=== PATIENT | male | born 1975 | race Caucasian/White ===

== ENCOUNTER → 2025-01-18 14:03 | Outpatient (CLI) | payer OTHER, SELFPAY ==
[2025-01-18 14:42] LABS: Hemoglobin A1C% w Est Avg Glu 5.3 % (4.0-6.0)
[2025-01-18 14:46] LABS: Add Manual Diff / Slide Review NO; Basophils Absolute Auto 100 /uL (0-100); Basophils Percent Auto 0.8 % (0-2); Eosinophils Absolute Auto 300 /uL (0-450); Eosinophils Percent Auto 3.2 % (2-4); Hematocrit 44.4 % (41-53); Hemoglobin 14.7 g/dL (13.5-17.5); Lymphocytes Absolute Auto 2700 /uL (1100-4500); Lymphocytes Percent Auto 32.4 % (25-40); Mean Corpuscular HGB Conc 33.2 % (30-36); Mean Corpuscular Hemoglobin 31.9 PG (26-34); Monocytes Absolute Auto 500 /uL (0-900); Monocytes Percent Auto 6.2 % (3-14); Neutrophils Absolute Auto 4800 /uL (1500-7000); Neutrophils Percent Auto 57.4 % (50-75); Platelet Count 312 X10^3/uL (150-400); Red Blood Cell Count 4.62 X10^6/uL (4.5-5.9); White Blood Cell Count 8.4 X10^3/uL (4.5-11.0)
[2025-01-18 14:50] LABS: Alanine Aminotransferase 67 IU/L (<50); Albumin 4.3 g/dL (3.5-5.0); Albumin Globulin Ratio 1.1 (1.0-2.8); Alkaline Phosphatase 73 U/L (38-126); Aspartate Aminotransferase 35 IU/L (17-59); BUN Creatinine Ratio 11.9 (6-22); Bilirubin Total 0.6 mg/dL (0.2-1.3); Blood Urea Nitrogen 12 mg/dL (9-20); Calcium 9.3 mg/dL (8.4-10.2); Carbon Dioxide 27 mmol/L (22-32); Chloride 103 mmol/L (98-107); Estimated Glomerular Filt Rate > 60 mL/min (>60); Globulin 3.8 g/dL (1.7-4.1); Glucose 98 mg/dL (70-100); HDL Cholesterol 46 mg/dL (40-60); HEMOLYSIS < 15 (0-50); Potassium 4.8 mmol/L (3.4-5.1); Sodium 138 mmol/L (137-145); Total Protein 8.1 g/dL (6.3-8.2); Triglycerides 180 mg/dL (35-150)
[2025-01-18 15:01] LABS: Cholesterol 338 mg/dL (140-199); LDL Cholesterol Calculated 256 mg/dL (<100)
[2025-01-18 15:18] LABS: TSH w/ Reflex to FT4 1.89 uIU/mL (0.47-4.68)
== END ==
PROVIDERS: PCP Nurse Practitioner Family; Referring Provider Nurse Practitioner Family; Visit Provider Nurse Practitioner Family
DX: E66.9 Obesity, unspecified (principal)
CPT/HCPCS: 36415; 80053; 80061; 83036; 84443; 85025

== ENCOUNTER 2025-04-05 11:57 | Day surgery (SDC) | payer OTHER, SELFPAY ==
[2025-04-05 12:48] VITALS: BP 114/77; PULSE 76; RESP 18; TEMP 36.4; O2SAT 95
[2025-04-05] MEDS: LACTATED RINGERS 1,000 ML 42 ML IV (13:12)
--- NOTE | 2025-04-05 13:49 | PM.HP.IH.1 ---
History of Present Illness History of Present Illness Date Patient Seen: 04/05/25 Chief complaint: Screening Colonoscopy Narrative: First screening colonoscopy [facility] History (Updated 02/12/25 @ 08:35 by [facility] Hypertension Hyperlipidemia Obesity, Class II, BMI 35-39.9 Social History Smoking Status: Never smoker Meds Home Medications and Allergies Home Medications ?Medication ?Instructions ?Recorded ?Confirmed ?Type tirzepatide (weight loss) 7.5 5 mg (0.3333 mL) SUBCUT QWEEK #2 mL 03/31/25 04/05/25 Rx mg/0.5 mL subcutaneous solution Allergies Allergy/AdvReac Type Severity Reaction Status Date / Time No Known Allergies Allergy Verified 04/05/25 12:47 Exam Vital Signs (past 8 hours): - 04/05/25 12:48 Temperature 97.6 F Pulse Rate 76 Respiratory Rate 18 Blood Pressure 114/77 Pulse Oximetry 95 Oxygen Delivery Method Room Air Oxygen Delivery Method Room Air Narrative Exam Narrative: Oropharynx free of lesions Chest clear to auscultation percussion Cardiac exam reveals no S3 or murmur Assessment & Plan Assessment & Plan narrative: For screening colonoscopy. Risks, benefits, alternatives have been explained Time-Based Coding :: [TOTAL MINUTES] spent with patient and on the chart (including review of chart, obtaining history, exam, reviewing outside data, placing orders, documenting exam and treatment plan, and counseling patient) on [DATE]. [employer] Document charge(s): No
--- NOTE | 2025-04-05 13:53 | PM.OP.COLON ---
Operative Date/Time/Diagnoses Date of procedure: 04/05/25 Time of procedure: 14:14 Pre-op diagnosis: See indication and findings Post-op diagnosis: same Procedure & Clinicians Study performed: Colonoscopy Same procedure(s) as scheduled: Yes Indications: Screening Surgeon: Carmine Lizama Anesthesia Type: Other Procedure Notes Procedure in detail: After informed consent was obtained the patient was placed in left lateral decubitus position. The video colonoscope was placed into the rectum and slowly advanced cecum. Preparation was good. On slow withdrawal mucosa was carefully inspected. The scope was removed. The patient tolerated procedure well. Blood loss none Complications none Sedation mac Findings 1. Normal colonoscopy to cecum Patient should have follow-up colonoscopy in 10 years
[2025-04-05 14:19] VITALS: BP 118/75; PULSE 82; RESP 14; TEMP 36.9; O2SAT 99
[2025-04-05 14:24] VITALS: BP 133/89; PULSE 80; RESP 16; TEMP 36.9; O2SAT 97
[2025-04-05 14:28] VITALS: BP 136/92; PULSE 75; RESP 14; TEMP 36.9; O2SAT 99
== END 2025-04-05 14:37 | disposition home or self-care (01) ==
PROVIDERS: PCP Nurse Practitioner Family; Referring Provider Internal Medicine Gastroenterology; Visit Provider Internal Medicine Gastroenterology
PROC: 0DJD8ZZ Inspection of Lower Intestinal Tract, Via Natural or Artificial Opening Endoscopic (ICD-10-PCS; CPT 45378; principal; 2025-04-05 14:00)
DX: Z12.11 Encounter for screening for malignant neoplasm of colon (principal); E66.9 Obesity, unspecified
CPT/HCPCS: G0121; J2704

== ENCOUNTER → 2025-06-10 07:38 | Outpatient (CLI) | payer SELFPAY ==
[2025-06-10 08:52] LABS: Alanine Aminotransferase 58 IU/L (<50); Albumin 3.9 g/dL (3.5-5.0); Albumin Globulin Ratio 1.1 (1.0-2.8); Alkaline Phosphatase 76 U/L (38-126); Blood Urea Nitrogen 13 mg/dL (9-20); Calcium 9.4 mg/dL (8.4-10.2); Carbon Dioxide 28 mmol/L (22-32); Chloride 104 mmol/L (98-107); Cholesterol 269 mg/dL (140-199); Estimated Glomerular Filt Rate > 60 mL/min (>60); Globulin 3.4 g/dL (1.7-4.1); Glucose 93 mg/dL (70-99); HDL Cholesterol 44 mg/dL (40-60); HEMOLYSIS < 15 (0-50); Potassium 5.3 mmol/L (3.4-5.1); Sodium 138 mmol/L (137-145); Total Protein 7.3 g/dL (6.3-8.2); Triglycerides 188 mg/dL (35-150)
== END ==
PROVIDERS: PCP Nurse Practitioner Family; Referring Provider Nurse Practitioner Family; Visit Provider Nurse Practitioner Family
DX: E78.5 Hyperlipidemia, unspecified (principal); E66.812 Obesity, class 2
CPT/HCPCS: 36415; 80053; 80061

== ENCOUNTER → 2025-07-13 08:00 | Outpatient (CLI) | payer OTHER, SELFPAY ==
[2025-07-13 09:15] LABS: Blood Urea Nitrogen 10 mg/dL (9-20); Calcium 9.3 mg/dL (8.4-10.2); Carbon Dioxide 25 mmol/L (22-32); Chloride 103 mmol/L (98-107); Estimated Glomerular Filt Rate > 60 mL/min (>60); Glucose 118 mg/dL (70-99); HEMOLYSIS < 15 (0-50); Potassium 4.4 mmol/L (3.4-5.1); Sodium 135 mmol/L (137-145)
== END ==
PROVIDERS: PCP Nurse Practitioner Family; Referring Provider Nurse Practitioner Family; Visit Provider Nurse Practitioner Family
DX: Z51.81 Encounter for therapeutic drug level monitoring (principal); I15.9 Secondary hypertension, unspecified; E66.812 Obesity, class 2
CPT/HCPCS: 36415; 80048